=== PATIENT | female | born 1985 | race Caucasian/White ===

== ENCOUNTER 2016-11-26 14:30 | Outpatient (RCR) | payer MEDICAID, SELFPAY | END 2016-11-26 15:00 | LOC: PT.CARL 14:30 | PROVIDERS: Referring Provider Emergency Medicine; Visit Provider Emergency Medicine | DX: M54.5 Low back pain (principal) | CPT/HCPCS: 97162 ==

== ENCOUNTER → 2021-02-20 18:50 | Outpatient (CLI) | payer MEDICAID, SELFPAY | PROVIDERS: Visit Provider Nurse Practitioner Family | DX: L02.414 Cutaneous abscess of left upper limb (principal); L02.413 Cutaneous abscess of right upper limb | CPT/HCPCS: 87070; 87077; 87186; 87205 ==

== ENCOUNTER → 2021-10-22 09:14 | Outpatient (CLI) | payer MEDICAID, SELFPAY ==
--- NOTE | 2021-10-22 09:15 | CA_ITS ---
APPROVED REPORT EXAM: Comprehensive 2D, Doppler, and color-flow Echocardiogram Archeologist: Eleni Parker CRT Ht: 5 ft 1 in Wt: 139lbs BSA: 1.62 BP: 104/77 mmHg Indications: Shortness of Breath, Peripheral Edema, smoker 2D Dimensions LVOT 2.01 cm (M/F) 1.5-2.5 LA Volume 28.40 mL LA Volume Index 17.50 mL/m2 (M/F) 16-34 M-Mode Dimensions RVDd 2.79 cm (0.9-2.6) LA Diam 3.35 cm (1.9-4.0) LVDd 4.61 cm (3.5-5.7) Ao Diam 3.20 cm (2.0-3.7) LVDs 2.84 cm (3.5-5.7) IVSd 1.25 cm (0.6-1.1) PWd 0.58 cm (0.6-1.1) EF (Teich) 68.70% FS 38.40% EDV (Teich) 97.80 mL TAPSE 2.62 (<1.7) ESV (Teich) 30.60 mL LV Diastology E Decel Time 143.00 (160-240 msec) E/A Ratio 1.51 MED E' 12.00 (< 7 cm/sec) MED A' 13.20 cm/s E'/MED E' Ratio 7.32 (>14) LAT E' 21.00 (<10 cm/sec) LAT A' 10.60 cm/s E/LAT E' Ratio 4.18 (>14) Aortic Valve AO Peak GR. 6.50 mmHg Mitral Valve MV A Velocity 58.00 (40-130 cm/s) E/A Ratio 1.51 MV Decel. Time 143.00 (160-240 ms) Pulmonary Valve PV Peak Velocity 105.00 (50-150 cm/s) Left Ventricle Left atrium normal size, left ventricle is normal size, there is no concentric left ventricular hypertrophy, visually estimated ejection fraction 55% with no regional wall motion abnormality, diastolic parameters are within normal range. Right Ventricle Right atrium and right ventricle are normal size and contractility. Aortic Valve Aortic valve is grossly normal, there is no aortic stenosis or aortic insufficiency. Mitral Valve Mitral valve grossly normal, there is trace mitral regurgitation. Tricuspid Valve Tricuspid grossly normal, there is trace tricuspid regurgitation, tricuspid regurgitation jet velocity is inadequate for calculation of the right ventricular systolic pressure. Pulmonic Valve Pulmonic valve is poorly visualized. Great Vessels Aortic root is normal size. Inferior vena cava is normal size with normal inspiratory collapse. Pericardium No significant pericardial effusion noted. Conclusion 1. Normal left ventricular size, preserved left ventricular systolic function, visually estimated ejection fraction 55% with no regional wall motion abnormality, diastolic parameters are within normal range. 2. Trace mitral and tricuspid regurgitation. 3. No significant pericardial effusion noted. 4. Inferior vena cava is normal size with normal inspiratory collapse. Electronically signed by : Shine Jaramillo MD 10/22/2021 21:32:47
--- NOTE | 2021-10-22 09:50 | MR_ITS ---
FINAL REPORT CLINICAL HISTORY: Ongoing Low back pain. lbp worse on rt side. rt leg pain. symptoms xyrs. FINDINGS: Multiplanar MR imaging of the lumbar spine was performed without contrast. On the sagittal T2-weighted images, disc degeneration is seen at multiple levels. The vertebral alignment is normal. There is a mild chronic compression fracture of L2. There is endplate change at L4-L5. No bony mass is identified. The conus has an unremarkable appearance. No significant canal stenosis is identified. T12-L1: There is no significant canal stenosis or neural foraminal narrowing. L1-2: An annular bulge is present. There is no significant canal stenosis or neural foraminal narrowing. L2-3: There is no significant canal stenosis or neural foraminal narrowing. L3-4: An annular bulge is present. There is no significant canal stenosis or neural foraminal narrowing. L4-5: An annular bulge is present. There is mild right neural foraminal narrowing. L5-S1: An annular bulge is present. There is mild bilateral neural foraminal narrowing. IMPRESSION: Multilevel degenerative disc disease with areas of neural foraminal narrowing as described. Reviewed, Interpreted and Dictated by Barry Lin III, MD Transcribed by Avery Byrnes Authenticated by Barry Lin III, MD on 10/22/2021 01:09:08 PM [facility]
== END ==
PROVIDERS: PCP Emergency Medicine; Visit Provider Nurse Practitioner Family
DX: R06.02 Shortness of breath (principal); M54.41 Lumbago with sciatica, right side; G89.29 Other chronic pain
CPT/HCPCS: 72148; 76376; 93306

== ENCOUNTER 2021-11-14 16:05 | Emergency (ER) | payer MEDICAID, SELFPAY ==
[2021-11-14 16:31] VITALS: BP 124/70; PULSE 71; RESP 22; TEMP 37.1; O2SAT 98; BMI 22.1
[2021-11-14 16:41] VITALS: BP 124/70; PULSE 71; RESP 22; TEMP 37.1; O2SAT 98
== END 2021-11-14 16:43 | disposition left against medical advice (07) ==
LOC: ER 16:12 → UTC 16:13
PROVIDERS: Emergency Provider Nurse Practitioner; PCP Emergency Medicine
DX: Z53.21 Procedure and treatment not carried out due to patient leaving prior to being seen by health care provider (principal)

== ENCOUNTER → 2021-11-26 13:03 | Outpatient (POV) | payer MEDICAID, SELFPAY ==
[2021-11-26 13:41] VITALS: BP 131/63; PULSE 101; RESP 18; TEMP 36.7; O2SAT 96; BMI 25.4
--- NOTE | 2021-11-26 14:45 | HMH.PMCON ---
Assessment and Plan (1) Degenerative disc disease, lumbar Status: Acute Category: Medical Code(s): M51.36 - Other intervertebral disc degeneration, lumbar region (2) Lumbar radiculopathy Status: Acute Category: Medical Code(s): M54.16 - Radiculopathy, lumbar region (3) Bulging lumbar disc Status: Acute Category: Medical Code(s): M51.26 - Other intervertebral disc displacement, lumbar region (4) Facet arthropathy, lumbar Status: Acute Category: Medical Code(s): M47.816 - Spondylosis without myelopathy or radiculopathy, lumbar region - Assessment and plan all Dx Assessment and Plan for all problems:: Patient is a new patient who presents with acute on chronic low back pain. Patient has been having increasing pain in the last 3-4 weeks. She is taking Tylenol and ibuprofen for pain. She is not interested in injective therapy at the moment. She says that she would like to try some oral medications first. We will start her on Prednisone 20mg x5 days, Meloxicam 5mg daily #14, Robaxin 500mg BID #28. We will follow-up with the patient in 1 week. Patient has been instructed to contact the clinic with any concerns before the next appointment. This note was dictated using voice recognition software and may contain errors or omissions. HPI - Data of Consult Patient: new to practice Consult date: 11/26/21 Requesting Physician: JHOANA Johnson - Consult Narrative Reason for consult: Low back pain History of present illness: Ms. Blancas is a 36 year old female who is here today as a new patient. Patient is referred by Rick Curry APRN for chronic low back pain. Patient states that she has been having low back pain since she was 16. She says that she was very active in cheerleading. She describes her pain as originating from her low back that radiates the bilateral lower extremities. She denies any recent traumas or falls. She says that a few weeks ago, she was standing up and started to feel like her back gave out. She has not had any relief of symptoms since then. Her MRI on October 22, 2021 shows multilevel degenerative disc disease with areas of neural foraminal narrowing at L4-L5, L5-S1. She also has annular bulges around L1-L2, L3-L4, L4-L5, and L5-S1. She rates her pain as 7 out of 10. Her Harris number is [phone] with an active morphine equivalent of 0. CC: JHOANA Johnson [facility] History I have reviewed the patient's past medical history: Yes Medical History: Reports:: Seizures *Have you ever received a pneumonia vaccine?: No *Have you received a flu vaccine this season?: No Other Medical History: Reports: Other Laterality Cases: Bilateral: Tonsillectomy Other Surgeries: Yes: Amputation: No Fractures: Yes - *Social History Smoking Status: Current every day smoker Tobacco Type: cigarettes # Packs/Day (cigarettes): 1 Alcohol Intake: never Alcohol Intake Frequency:: other Substance Use Type: marijuana, heroin, opiates *Occupational Status:: other *Travel in the last 8 weeks: None Family Hx:: No significant family history Review of Systems - Review of Systems Review of Systems General: No recent weight changes, no fever, no sleep disturbances Respiratory: No cough, no shortness of air, no recurring pulmonary infections Cardiovascular/peripheral vascular: No chest pain, no palpitations, no edema, no shortness of breath Gastrointestinal: No new onset incontinence, normal bowel movements reported Genitourinary: No new onset incontinence Musculoskeletal: Low back pain Psychiatric: [Normal mood/affect] Neurological: [Denies weakness in extremities], [denies balance issues] Meds Home Medications Medication Instructions Recorded Confirmed Type Furosemide [Furosemide 20mg Tab*] 20 mg PO DAILY 11/26/21 11/26/21 History Nicotine [Nicotine Patch 1 patch TRANSDERMA Q24H 11/26/21 11/26/21 History 21mg/24hrs] Sacubitril/Valsartan [Entresto] 1 tab PO BID 03
== END ==
PROVIDERS: Visit Provider Student in an Organized Health Care Education/Training Program
DX: M51.16 Intervertebral disc disorders with radiculopathy, lumbar region (principal); M51.26 Other intervertebral disc displacement, lumbar region; M47.896 Other spondylosis, lumbar region
CPT/HCPCS: 99202; G0463

== ENCOUNTER → 2022-11-26 13:20 | Outpatient (CLI) | payer MEDICAID, SELFPAY ==
--- NOTE | 2022-11-26 13:24 | XR_ITS ---
FINAL REPORT CLINICAL HISTORY: wrist fracture. cyst on lateral aspect of wrist. pain, numbness and tingling FINDINGS: Left wrist Three views were obtained. There is no acute fracture or dislocation. The joint spaces appear normal. No soft tissue abnormality is identified. IMPRESSION: No acute process. Reviewed, Interpreted and Dictated by Barry Lin III, MD Transcribed by Nely Orona Authenticated and [facility]
== END ==
PROVIDERS: PCP Nurse Practitioner Family; Visit Provider Orthopaedic Surgery
DX: M67.432 Ganglion, left wrist (principal)
CPT/HCPCS: 73110

== ENCOUNTER → 2023-02-24 13:06 | Outpatient (CLI) | payer MEDICAID, SELFPAY | PROVIDERS: PCP Nurse Practitioner Family; Visit Provider Nurse Practitioner | DX: R06.02 Shortness of breath (principal) | CPT/HCPCS: 93306 ==

== ENCOUNTER → 2023-03-17 13:53 | Outpatient (CLI) | payer MEDICAID, SELFPAY ==
[2023-03-17 13:58] LABS: MANUAL DIFFERENTIAL MANUAL DIFFERENTIAL (MANUAL DIFF)
[2023-03-17 14:28] LABS: Basophils % 0.3 % (0.1-2.0); Eosinophils # 0.2 K/mm3 (0.0-0.4); Eosinophils % 4.2 % (0.1-12.0); Hematocrit 39.8 % (37.0-47.0); Hemoglobin 12.8 g/dL (12.2-16.2); Lymphocytes # 1.1 K/mm3 (0.7-4.5); Lymphocytes % 22.6 % (10-50); Mean Corpuscular HGB Conc 32.1 g/dL (31.8-35.4); Mean Corpuscular Hemoglobin 29.8 pg (27.0-31.2); Mean Corpuscular Volume 92.6 fl (81-99); Mean Platelet Volume 7.1 fl (7.4-10.4); Monocytes # 0.3 K/mm3 (0.1-1.0); Monocytes % 6.2 % (1.7-9.3); Neutrophils # 3.4 K/mm3 (1.8-7.8); Neutrophils % 66.8 % (37.0-80.0); Platelet Count 239 K/mm3 (142-424); Red Cell Distribution Width 13.2 % (11.5-17.5); White Blood Count 5.1 K/mm3 (4.8-10.8)
[2023-03-17 15:03] LABS: Eosinophils % 4 % (0-3); Lymphocytes % 26 % (10-50); Monocytes % 4 % (2-9); Neutrophils % 66 % (42-76); Total Cells Counted 100
[2023-03-17 15:04] LABS: Platelet Estimate Normal; RBC Morphology Normal
[2023-03-17 16:01] LABS: Alanine Aminotransferase 17 U/L (12-78); Alkaline Phosphatase 81 U/L (38-126); Aspartate Amino Transferase 29 U/L (14-36); Bilirubin,Indirect 0.2 mg/dL (0.0-0.9); Bilirubin,Total 0.2 mg/dl (0.2-1.3); Bilirubin,Unconjugated 0.3 mg/dL (0.0-1.1); Blood Urea Nitrogen 6 mg/dl (7-17); Calcium 8.8 mg/dl (8.4-10.2); Carbon Dioxide 29 mmol/L (22.0-30.0); Chloride 98 mmol/L (98-107); Chol/HDL Ratio 8.1 (1-3.5); Cholesterol 236 mg/dl (140-200); Estimated Glomerular Filt Rate 112 ml/min (>60); GFR (African American) 136 ML/MIN (>60); Glucose 79 mg/dl (74-100); HDL Cholesterol 29 mg/dl (40-60); Sodium 138 mmol/L (136-145); Total Protein,Serum 6.9 g/dl (6.3-8.2)
[2023-03-17 16:11] LABS: NT Pro Brain Natriuretic Pep. < 20.0 pg/mL (0-125)
[2023-03-17 16:13] LABS: Direct LDL Cholesterol 70.29 mg/dL (100-129)
[2023-03-17 16:18] LABS: T4 (Thyroxine) 7.3 ug/dl (5.53-11.0)
[2023-03-17 16:32] LABS: Thyroid Stimulating Hormone 3.35 uIU/mL (0.465-4.68)
== END ==
PROVIDERS: PCP Nurse Practitioner Family; Visit Provider Nurse Practitioner Family
DX: R06.00 Dyspnea, unspecified (principal); I50.22 Chronic systolic (congestive) heart failure; R60.9 Edema, unspecified; R94.31 Abnormal electrocardiogram [ECG] [EKG]
CPT/HCPCS: 36415; 80048; 80061; 80076; 83880; 84436; 84443; 85007; 85014; 85018; 85048; 85049